=== PATIENT | male | born 1975 | race Caucasian/White ===

== ENCOUNTER 2020-12-16 19:18 | Emergency (ER) | payer OTHER ==
[~2020-12-16 19:18] MED LIST: DELSYM30 MG/5 ML PO; EXPECTORANT200 MG PO; FLONASE 0.05% N16 GM; ZYRTEC10 MG PO
[2020-12-16 20:33] LABS: HEMOGLOBIN 16.8 gm/dl (14.0-17.5); RED BLOOD COUNT 5.16 M/UL (4.20-5.50); WHITE BLOOD COUNT 6.8 K/UL (4.5-11.0)
[2020-12-16 21:04] LABS: BUN/CREATININE RATIO 17 (0-10)
== END 2020-12-16 23:30 | disposition left against medical advice (07) ==
LOC: ER1 19:18
PROVIDERS: Family Medicine
DX: Z53.21 Procedure and treatment not carried out due to patient leaving prior to being seen by health care provider (principal)
CPT/HCPCS: 80053; 82550; 82553; 83874; 84484; 85025; 93005

== ENCOUNTER 2022-02-13 21:09 | Emergency (ER) | payer OTHER ==
[2022-02-13 21:42] LABS: HEMOGLOBIN 16.9 gm/dl (14.0-17.5); RED BLOOD COUNT 4.98 M/UL (4.20-5.50); WHITE BLOOD COUNT 6.1 K/UL (4.5-11.0)
[2022-02-13 22:03] LABS: BUN/CREATININE RATIO 18 (0-10)
== END 2022-02-13 22:39 | disposition left against medical advice (07) ==
LOC: ER1 21:09
PROVIDERS: Emergency Medicine
DX: Z53.21 Procedure and treatment not carried out due to patient leaving prior to being seen by health care provider (principal)
CPT/HCPCS: 80053; 81001; 83690; 85025

== ENCOUNTER 2022-02-26 17:58 | Emergency (ER) | payer OTHER ==
[2022-02-26 18:58] LABS: HEMOGLOBIN 16.4 gm/dl (14.0-17.5); RED BLOOD COUNT 4.86 M/UL (4.20-5.50); WHITE BLOOD COUNT 6.9 K/UL (4.5-11.0)
[2022-02-26 19:24] LABS: BUN/CREATININE RATIO 21 (0-10)
== END 2022-02-26 21:37 | disposition left against medical advice (07) ==
LOC: ER1 17:58
PROVIDERS: Preventive Medicine Occupational Medicine
DX: R10.9 Unspecified abdominal pain (principal); R19.7 Diarrhea, unspecified
CPT/HCPCS: 80053; 81001; 83690; 85025; 99281